=== PATIENT | male | born 1995 | race Caucasian/White ===

== ENCOUNTER 2018-01-03 17:00 | Emergency (ER) | payer MEDICAID, OTHER ==
[2018-01-03 17:18] VITALS: BP 134/78; PULSE 82; RESP 16; TEMP 98.8; O2SAT 97
[2018-01-03] MEDS ORDERED: TDAP Vaccine 0.5 mL Syr IM ONE (18:15)
--- NOTE | 2018-01-03 18:16 | ED PDOC ---
Arrival/HPI - General Chief Complaint: Headache Time Seen by Provider: 01/03/18 17:28 Historian: Patient - History of Present Illness Narrative History of Present Illness (Text): 01/03/18 18:13 22-year-old male presents today with headache and feeling slightly confused and "feeling out of it". Patient states he has had 2 days ago on a beam. Patient denies loss of consciousness. Patient states since then he just hasn't been feeling right. He denies nausea or vomiting. Denies dizziness or weakness. Denies chest pain or shortness of breath. Patient denies blurred vision. No other complaints. Past Medical History - Provider Review Nursing Documentation Reviewed: Yes - Travel History Have you recently traveled outside [place] w/in the past 3 mons?: No - Infectious Disease Hx of Infectious Diseases: None - Tetanus Immunization Tetanus Immunization: Unknown - Psychiatric Hx Psychophysiologic Disorder: No Hx Substance Use: No - Surgical History Hx Appendectomy: Yes - Anesthesia Hx Anesthesia: Yes Family/Social History - Physician Review Nursing Documentation Reviewed: Yes Family/Social History: Unknown Family HX Smoking Status: Never Smoked Hx Alcohol Use: No Hx Substance Use: No Allergies/Home Meds Allergies/Adverse Reactions: Allergies Penicillins Allergy (Verified 01/03/18 17:13) RASH Home Medications: Home Meds Medication Instructions Recorded Confirmed No Known Home Med [No Known Home 09/04/13 01/03/18 Med] Review of Systems - Review of Systems Constitutional: absent: Fatigue, Fevers Respiratory: absent: SOB, Cough Cardiovascular: absent: Chest Pain, Palpitations Gastrointestinal: absent: Abdominal Pain, Nausea, Vomiting Genitourinary Male: absent: Dysuria, Frequency, Hematuria Musculoskeletal: absent: Arthralgias, Back Pain, Neck Pain Neurological: Headache, Dizziness Psychiatric: absent: Anxiety, Depression, Suicidal Ideation Physical Exam Vital Signs Reviewed: Yes Vital Signs Temp Pulse Resp BP Pulse Ox 01/03/18 17:13 98.8 F 82 16 134/78 97 Temperature: Afebrile Blood Pressure: Normal Pulse: Regular Respiratory Rate: Normal Appearance: Positive for: Well-Appearing, Non-Toxic, Comfortable Pain Distress: None Mental Status: Positive for: Alert and Oriented X 3 - Systems Exam Head: Present: Abrasion (+ abrasion noted to top of scalp; no tenderness; no erythema; no edema) Pupils: Present: PERRL Extroacular Muscles: Present: EOMI Conjunctiva: Present: Normal Mouth: Present: Moist Mucous Membranes Neck: Present: Normal Range of Motion Respiratory/Chest: Present: Clear to Auscultation, Good Air Exchange. No: Respiratory Distress, Accessory Muscle Use Cardiovascular: Present: Regular Rate and Rhythm, Normal S1, S2. No: Murmurs Upper Extremity: Present: Normal ROM Lower Extremity: Present: Normal ROM Neurological: Present: GCS=15, Speech Normal, Motor Func Grossly Intact, Normal Sensory Function, Gait Normal Skin: Present: Warm, Dry Psychiatric: Present: Alert, Oriented x 3 Medical Decision Making ED Course and Treatment: 01/03/18 18:17 Patient nontoxic well-appearing no distress with stable vital signs complaining of a 2 day history of headache status post head injury Patient refusing any medications for pain Tetanus updated CT head:FINDINGS: HEMORRHAGE: No intracranial hemorrhage. BRAIN: No mass effect or edema. No atrophy or chronic microvascular ischemic changes. VENTRICLES: Unremarkable. No hydrocephalus. CALVARIUM: Unremarkable. PARANASAL SINUSES: Unremarkable as visualized. No significant inflammatory changes. MASTOID AIR CELLS: Unremarkable as visualized. No inflammatory changes. OTHER FINDINGS: None. IMPRESSION: Normal CT of the Head. Discussed all results in depth with the patient I advised patient to follow up with primary care physician and neurologist within the next 2 days. Advised taking Tylenol for pain. Advised immediate return is symptoms worsen persist or if new concerning symptoms develop Patient verbalizes understanding of discharge instructions and need for immediate followup. all aspects of this case were discussed the attending of record. Impression: Head injury, abrasion scalp Tylenol every 4 hours as needed for pain Follow up with the primary care physician within the next 2 days Follow-up with a neurologist within the next 2 days Return if symptoms worsen persist or if new concerning symptoms develop 01/03/18 18:57 - RAD Interpretation Radiology Orders: 01/03/18 17:28 HEAD W/O CONTRAST [CT] Stat - Medication Orders Current Medication Orders: Discontinued Medications Tetanus/Reduced Diphtheria/Acell Pertussis (Boostrix Vaccine Inj) 0.5 ml IM .ONCE ONE Stop: 01/03/18 18:16 Last Admin: 01/03/18 18:22 Dose: 0.5 ml MAR Immunization Data Document 01/03/18 18:22 [place] (Rec: 01/03/18 18:22 [place] [id number]) Immunization Data Vaccine Information Sheet Given Yes Immunization Registry Document 01/03/18 18:22 [place] (Rec: 01/03/18 18:22 LA [id number]) Immunization Registry Consent Date 01/03/18 Disposition/Present on Arrival - Present on Arrival Any Indicators Present on Arrival: No History of DVT/PE: No History of Uncontrolled Diabetes: No Urinary Catheter: No History of Decub. Ulcer: No History Surgical Site Infection Following: None - Disposition Have Diagnosis and Disposition been Completed?: Yes Diagnosis: Head injury, Abrasion, scalp w/o infection Disposition: HOME/ ROUTINE Disposition Time: 18:58 Patient Plan: Discharge Condition: GOOD Discharge Instructions (ExitCare): Concussion in Adults, Skin Abrasions Additional Instructions: Tylenol every 4 hours as needed for pain Follow up with the primary care physician within the next 2 days Follow-up with a neurologist within the next 2 days Return if symptoms worsen persist or if new concerning symptoms develop Referrals: Doroteo Ye MD [Primary Care Provider] - Follow up with primary Nu Conde MD [Staff Provider] - Follow up with primary Forms: [employer] ([place]), WORK NOTE
--- NOTE | 2018-01-03 18:21 | CT ---
PROCEDURE: CT HEAD WITHOUT CONTRAST. HISTORY: headache COMPARISON: None available. TECHNIQUE: Axial computed tomography images were obtained through the head/brain without intravenous contrast. Radiation dose: Total exam DLP = 931.32 mGy-cm. This CT exam was performed using one or more of the following dose reduction techniques: Automated exposure control, adjustment of the mA and/or kV according to patient size, and/or use of iterative reconstruction technique. FINDINGS: HEMORRHAGE: No intracranial hemorrhage. BRAIN: No mass effect or edema. No atrophy or chronic microvascular ischemic changes. VENTRICLES: Unremarkable. No hydrocephalus. CALVARIUM: Unremarkable. PARANASAL SINUSES: Unremarkable as visualized. No significant inflammatory changes. MASTOID AIR CELLS: Unremarkable as visualized. No inflammatory changes. OTHER FINDINGS: None. IMPRESSION: Normal CT of the Head.
== END 2018-01-03 19:10 | disposition home or self-care (01) ==
LOC: ED 17:00
DX: S00.01XA Abrasion of scalp, initial encounter (principal); X58.XXXA Exposure to other specified factors, initial encounter; Z23 Encounter for immunization

== ENCOUNTER 2018-12-11 17:31 | Emergency (ER) | payer MEDICAID ==
[2018-12-11 18:15] VITALS: BP 125/81; PULSE 94; RESP 18; TEMP 98.8; O2SAT 95; BMI 29.2
[2018-12-11] MEDS ORDERED: Dexamethasone 20 mg / 5 ml Inj IM STA (18:24)
--- NOTE | 2018-12-11 18:31 | ED PDOC ---
Arrival/HPI - General Chief Complaint: ENT Problem Time Seen by Provider: 12/11/18 17:34 Historian: Patient - History of Present Illness Narrative History of Present Illness (Text): 12/11/18 18:29 23-year-old male presents today with a sore throat for the past 2 days. Patient states he finished a course of antibiotics prescribed by the ENT specialist. He he states that he has been having on and off sore throats for a long time now. Patient states he would get at least one sore throat a month. Patient denies trismus or drooling. He is complaining of sinus congestion. He denies fevers or chills. No chest pain or shortness of breath. Patient denies dizziness or weakness. Patient denies difficulty breathing or swallowing. No other complaints Past Medical History - Provider Review Nursing Documentation Reviewed: Yes - Travel History Have you recently traveled outside [place] w/in the past 3 mons?: No - Infectious Disease Hx of Infectious Diseases: None - Tetanus Immunization Tetanus Immunization: Unknown - Psychiatric Hx Psychophysiologic Disorder: No Hx Substance Use: No - Surgical History Hx Appendectomy: Yes - Anesthesia Hx Anesthesia: Yes Family/Social History - Physician Review Nursing Documentation Reviewed: Yes Family/Social History: Unknown Family HX Smoking Status: Never Smoked Hx Alcohol Use: No Hx Substance Use: No Allergies/Home Meds Allergies/Adverse Reactions: Allergies Penicillins Allergy (Verified 12/11/18 17:55) RASH Home Medications: Home Meds Medication Instructions Recorded Confirmed Cetirizine HCl [Zyrtec] 10 mg PO DAILY 12/11/18 12/11/18 Review of Systems - Review of Systems Constitutional: absent: Fatigue, Fevers Eyes: absent: Vision Changes ENT: Sore Throat, Sinus Congestion Respiratory: absent: SOB, Cough Cardiovascular: absent: Chest Pain, Palpitations Skin: absent: Rash, Pruritis Neurological: absent: Headache, Dizziness Psychiatric: absent: Anxiety, Depression Physical Exam Vital Signs Reviewed: Yes Vital Signs Temp Pulse Resp BP Pulse Ox 12/11/18 17:55 98.8 F 94 H 18 125/81 95 Temperature: Afebrile Blood Pressure: Normal Pulse: Regular Respiratory Rate: Normal Appearance: Positive for: Well-Appearing, Non-Toxic, Comfortable Pain Distress: None Mental Status: Positive for: Alert and Oriented X 3 - Systems Exam Head: Present: Atraumatic Mouth: Present: Moist Mucous Membranes, Normal Lips, Normal Tounge. No: Drooling, Trismus Pharnyx: Present: ERYTHEMA, TONSILS ENLARGED. No: EXUDATE, Peritonsilar Swelling, Uvular Deviation, Muffled/Hoarse Voice, Strider, Soft Palate/Uvular Edema Nose (External): Present: Atraumatic Nose (Internal): Present: Clear Mucous Neck: Present: Normal Range of Motion, Trachea Midline. No: Paraspinal Tenderness, Lymphadenopathy Respiratory/Chest: Present: Clear to Auscultation, Good Air Exchange. No: Respiratory Distress, Accessory Muscle Use Cardiovascular: Present: Regular Rate and Rhythm, Normal S1, S2. No: Murmurs Neurological: Present: GCS=15, Speech Normal Skin: Present: Warm, Dry, Normal Color. No: Rashes Psychiatric: Present: Alert, Oriented x 3 Medical Decision Making ED Course and Treatment: 12/11/18 18:28 Patient is nontoxic well appearing in no distress. Vital signs are stable Tolerating p.o. fluids and solids Rapid strep: Negative Zithromax 500 mg p.o. Decadron 10 mg IM Patient reassessment: Patient feeling better after medications, vital signs stable. Moist mucous membranes. I advised follow up with primary care physician within the next 2 days, advised to increase fluids take medications as prescribed and return if symptoms worsen persist or if new symptoms develop IMPRESSION; pharyngitis Motrin every 6 hours as needed for pain/fever reduction Increase fluids Zithromax daily times 4 days flonase; 2 sprays each nostril once daily. Follow up primary care physician within the next 2 days Follow-up with ENT specialist within the next 2 days Saltwater gargles, throat lozenges Return if symptoms worsen persist or if new symptoms develop 12/11/18 18:58 pt requesting refill of his albuterol inhaler. Reassessment Condition: Re-examined, Improved - Medication Orders Current Medication Orders: Discontinued Medications Dexamethasone (Decadron Inj) 10 mg IM STAT STA Stop: 12/11/18 18:25 Disposition/Present on Arrival - Present on Arrival Any Indicators Present on Arrival: No History of DVT/PE: No History of Uncontrolled Diabetes: No Urinary Catheter: No History of Decub. Ulcer: No History Surgical Site Infection Following: None - Disposition Have Diagnosis and Disposition been Completed?: Yes Diagnosis: Pharyngitis Disposition: HOME/ ROUTINE Disposition Time: 18:26 Patient Plan: Discharge Patient Problems: Current Active Problems Problem Status Onset Pharyngitis Acute Condition: GOOD Discharge Instructions (ExitCare): Sore Throat, Adult (DC) Additional Instructions: Motrin every 6 hours as needed for pain/fever reduction Increase fluids Zithromax daily times 4 days flonase: 2 sprays each nostril once daily. Follow up primary care physician within the next 2 days Follow-up with ENT specialist within the next 2 days Saltwater gargles, throat lozenges Return if symptoms worsen persist or if new symptoms develop Prescriptions: Albuterol HFA [Ventolin HFA 90 mcg/actuation (8 g)] 2 puff IH [id number] PRN #1 inhaler PRN Reason: Cough Azithromycin [Zithromax] 250 mg PO DAILY #4 tab Fluticasone Nasal [Flonase] 2 spr NS DAILY #1 spr Ibuprofen [Motrin] 600 mg PO Q6H PRN #20 tab PRN Reason: pain/fever reduction Referrals: Terence Jha DO [Staff Provider] - Follow up with primary Lesley Winkler MD [Medical Doctor] - Follow up with primary [employer] [Outside] - Follow up with primary Forms: [employer] ([place]), WORK NOTE
== END 2018-12-11 19:06 | disposition home or self-care (01) ==
LOC: ED 17:31
DX: J02.9 Acute pharyngitis, unspecified (principal)
CPT/HCPCS: 87070; 87430; 96372; 99283; J1100

== ENCOUNTER 2019-01-21 22:33 | Emergency (ER) | payer MEDICAID ==
[2019-01-21 22:34] VITALS: BMI 29.2
[2019-01-21 22:56] VITALS: RESP 18; O2SAT 98
[2019-01-21] MEDS ORDERED: Sodium Chloride 0.9% 1,000 ML IV STA (23:17)
--- NOTE | 2019-01-21 23:31 | ED PDOC ---
Arrival/HPI - General Chief Complaint: Medical Clearance Time Seen by Provider: 01/21/19 22:39 Historian: Patient - History of Present Illness Narrative History of Present Illness (Text): 01/21/19 23:33 23 year old male, with no significant past medical history, who presents to the emergency department complaining of blood in vomit s/p tonsillectomy done at 12 pm today in [facility]. Patient reports he was given pain medications, which he states made him nauseous, then he vomited. He reports an episode of vomiting, with a "small amount" of blood. Patient is not actively vomiting blood presently. He denies any fever, difficulty breathing, headache, abdominal pain or any other somatic complaints. PMD: Dr. Ye Time/Duration: 24 hours Symptom Onset: Gradual Symptom Course: Unchanged Activities at Onset: Light Context: Home Past Medical History - Provider Review Nursing Documentation Reviewed: Yes - Infectious Disease Hx of Infectious Diseases: None - Tetanus Immunization Tetanus Immunization: Unknown - Psychiatric Hx Psychophysiologic Disorder: No Hx Substance Use: No - Surgical History Hx Appendectomy: Yes Hx Tonsillectomy: Yes - Anesthesia Hx Anesthesia: Yes Family/Social History - Physician Review Nursing Documentation Reviewed: Yes Family/Social History: Unknown Family HX Smoking Status: Never Smoked Hx Alcohol Use: No Hx Substance Use: No Allergies/Home Meds Allergies/Adverse Reactions: Allergies Penicillins Allergy (Verified 01/21/19 22:48) RASH Home Medications: Home Meds Medication Instructions Recorded Confirmed Cetirizine HCl [Zyrtec] 10 mg PO DAILY 12/11/18 12/11/18 Review of Systems - Physician Review All systems were reviewed & negative as marked: Yes - Review of Systems Constitutional: absent: Fevers Respiratory: absent: SOB Gastrointestinal: Nausea, Vomiting, Hematemesis. absent: Abdominal Pain Neurological: absent: Headache Physical Exam Vital Signs Reviewed: Yes Vital Signs Temp Pulse Resp BP Pulse Ox 01/21/19 22:49 98.6 F 113 H 18 145/91 H 98 Temperature: Afebrile Blood Pressure: Normal Pulse: Tachycardic Respiratory Rate: Normal Appearance: Positive for: Well-Appearing, Non-Toxic, Comfortable Pain Distress: None Mental Status: Positive for: Alert and Oriented X 3 - Systems Exam Head: Present: Atraumatic, Normocephalic Pupils: Present: PERRL Extroacular Muscles: Present: EOMI Conjunctiva: Present: Normal Mouth: Present: Moist Mucous Membranes Pharnyx: Present: EXUDATE (+white exudate noted to posterior pharnyx), Muffled/Hoarse Voice, Soft Palate/Uvular Edema Neck: Present: Normal Range of Motion Respiratory/Chest: Present: Clear to Auscultation, Good Air Exchange. No: Respiratory Distress, Accessory Muscle Use Cardiovascular: Present: Regular Rate and Rhythm, Normal S1, S2. No: Murmurs Abdomen: No: Tenderness, Distention, Peritoneal Signs Back: Present: Normal Inspection Upper Extremity: Present: Normal Inspection. No: Cyanosis, Edema Lower Extremity: Present: Normal Inspection. No: Edema Neurological: Present: GCS=15, Speech Normal Skin: Present: Warm, Dry, Normal Color. No: Rashes Psychiatric: Present: Alert, Oriented x 3, Normal Insight, Normal Concentration Medical Decision Making ED Course and Treatment: 01/21/19 23:27 Impression: 23 year old male presents to the ED complaining of blood in vomit earlier today. Differential Diagnosis included but are not limited to: Plan: -- Labs -- Toradol -- Zofran -- IV fluids -- Reassess and disposition Prior Visits: Notes and results from previous visits were reviewed. Progress Notes: 01/22/19 00:40 On reevaluation, patient reports improvement of symptoms, denies vomiting or spitting up blood, reports no dyspnea or nausea. On exam, patient remains awake alert and oriented 3 in no acute distress, speaking in full sentences, no muffled voice, no drooling, breathing easy and unlabored. Lab results d/w the patient. Advised to follow up with ENT in 1-2 days without fail. Advised to take medication as prescribed for nausea. Return to the emergency room at any time for any new or worsening symptoms. Patient states he fully agrees with and understands discharge instructions. States that he agrees with the plan and disposition. Verbalized and repeated discharge instructions and plan. I have given the patient opportunity to ask any additional questions. - Medication Orders Current Medication Orders: Sodium Chloride (Sodium Chloride 0.9%) 1,000 mls @ 1,000 mls/hr IV .Q1H STA Stop: 01/22/19 00:16 Discontinued Medications Ketorolac Tromethamine (Toradol) 30 mg IVP STAT STA Stop: 01/21/19 23:18 Ondansetron HCl (Zofran Inj) 4 mg IVP STAT STA Stop: 01/21/19 23:18 - PA / [employer] SALES CONSULTANT / Resident Statement / has reviewed & agrees with the documentation as recorded. / has examined the patient and agrees with the treatment plan. - Scribe Statement The provider has reviewed the documentation as recorded by the Yaneth Rankin All medical record entries made by the Valentinibcaroline were at my direction and personally dictated by me. I have reviewed the chart and agree that the record accurately reflects my personal performance of the history, physical exam, medical decision making, and the department course for this patient. I have also personally directed, reviewed, and agree with the discharge instructions and disposition. Disposition/Present on Arrival - Present on Arrival Any Indicators Present on Arrival: No History of DVT/PE: No History of Uncontrolled Diabetes: No Urinary Catheter: No History of Decub. Ulcer: No History Surgical Site Infection Following: None - Disposition Have Diagnosis and Disposition been Completed?: Yes Diagnosis: Nausea & vomiting, Hematemesis Disposition: HOME/ ROUTINE Disposition Time: 00:40 Patient Plan: Discharge Condition: STABLE Discharge Instructions (ExitCare): Nausea and Vomiting, Adult, Nausea and Vomiting After Surgery Additional Instructions: Thank you for letting us take care of you today. You were treated for your, vomiting, hematemesis. The emergency medical care you received today was directed at your acute symptoms. If you were prescribed any medication, please fill it and take as directed. It may take several days for your symptoms to resolve. Return to the Emergency Department if your symptoms worsen, do not improve, or if you have any other problems. Please follow up with your ENT doctor in 2 days for re-evaluation and follow up. Bring any paperwork you were given at discharge with you along with any medications you are taking to your follow up visit. Our treatment cannot replace ongoing medical care by a primary care provider (PCP) outside of the emergency department. Thank you for allowing the [facility] team to be part of your care today. Prescriptions: Ondansetron ODT [Zofran ODT] 4 mg PO DAILY PRN #20 odt PRN Reason: Nausea/Vomiting Referrals: Doroteo eY MD [Primary Care Provider] - Follow up with primary Forms: [employer] ([place]ian), WORK NOTE, SCHOOL NOTE
[2019-01-21 23:54] LABS: HEMOGLOBIN 15.4 g/dL (14.0-18.0); LYMPH # 0.7 (1.2-3.4); LYMPH % 5.3 % (22.0-35.0); MEAN CELL VOLUME 85.4 fl (80.0-105.0); MEAN CORPUSCULAR HEMOGLOBIN 30.3 pg (25.0-35.0); MEAN CORPUSCULAR HGB CONC 35.5 g/dl (31.0-37.0); MEAN PLATELET VOLUME 9.6 fl (7.0-11.0); MONO # 0.3 (0.1-0.6); MONO % 2.1 % (1.0-6.0); PLATELET COUNT 269 10^3/uL (120.0-450.0); RBC 5.08 10^6/uL (3.5-6.1); RED CELL DISTRIBUTION WIDTH 12.7 % (11.5-14.5); WHITE BLOOD COUNT 12.6 10^3/uL (4.5-11.0)
[2019-01-21 23:57] LABS: INR 1.19; PARTIAL THROMBOPLASTIN TIME 25.4 Seconds (26.9-38.3); PROTHROMBIN TIME 13.2 SECONDS (9.4-12.5)
[2019-01-22 00:03] LABS: ALB/GLOB RATIO 1.4 (1.1-1.8); ALBUMIN 4.5 g/dL (3.0-4.8); BLOOD UREA NITROGEN 16 mg/dL (7-21); CALCIUM 9.3 mg/dL (8.4-10.5); GFR NON-AFRICAN AMERICAN > 60
[2019-01-22 00:04] LABS: ALT/SGPT 39 U/L (7-56); AST/SGOT 63 U/L (17-59)
[2019-01-22 00:57] VITALS: BP 131/75; PULSE 76; TEMP 98.3
[2019-01-22 02:27] LABS: BAND 1 % (0-2); LYMPHOCYTE 10 % (22.0-35.0); NEUTROPHIL 87 % (50.0-70.0); PLATELET ESTIMATE NORMAL (NORMAL)
[2019-01-22 02:28] LABS: MONOCYTE 2 % (1.0-6.0)
== END 2019-01-22 01:10 | disposition home or self-care (01) ==
LOC: ED 22:33
DX: K92.0 Hematemesis (principal)
CPT/HCPCS: 80053; 85025; 85610; 85730; 96361; 96374; 96375; 99282; J1885; J2405; J7030